=== PATIENT | male | born 1975 | race Caucasian/White ===

== ENCOUNTER 2017-02-20 19:16 | Emergency (ER) | payer MEDICAID ==
[~2017-02-20] VITALS: Ht 160 cm; Wt 69.0 kg
[2017-02-20 19:24] VITALS: Ht 160 cm; Wt 69.0 kg
[2017-02-20] MEDS ORDERED: IBUPROFEN 600 MG TAB PO ONE (22:00)
--- NOTE | 2017-02-20 22:36 | RADRPT ---
PROCEDURE: XR Chest. CLINICAL INDICATION: Cough. TECHNIQUE: PA erect view of the chest was obtained. COMPARISON: None. FINDINGS: The cardiomediastinal silhouette is within normal limits. The lungs are clear. There is no evidenc e for pleural effusion, pneumothorax or pulmonary vascular congestion. The osseous structures are i ntact with no evidence for acute abnormality. RPTAT:HJJR IMPRESSION: No evidence for acute intrathoracic pathology. Physician Clint Date Time Electronically viewed and signed by Physician Clint on 02/20/2017 22:35 JR/
[2017-02-20] MEDS ORDERED: BEN25 PO (22:57)
--- NOTE | 2017-02-21 00:40 | ERD ---
ER Documentation Chief Complaint Date/Time DATE: 02/21/17 TIME: 00:36 Chief Complaint upper abd pain x 1 day, headache HPI This patient is a 41-year-old male with no past medical history presenting to the emergency department with anxiety feelings which began yesterday. Symptoms have been intermittent. He did experience some shortness of breath last night. He has never had the symptoms in the past. He reports it being difficult to take a deep breath. Symptoms lasted for around 30 minutes then spontaneously resolved. Report increased stress in his life. He adamantly denies suicidal or homicidal ideation. He has no history of suicidal ideation in the past. He denies chest pain, palpitations, cough, or other symptoms currently. ROS All systems reviewed and are negative except as per history of present illness. Medications Home Meds Active Scripts Diphenhydramine Hcl* (Benadryl*) 25 Mg Cap, 25 MG PO Q6, #30 CAP Prov:YUDELKA WELLINGTON PA-C 02/20/17 Allergies Allergies: Coded Allergies: No Known Allergy (Unverified , 12/06/13) PMhx/Soc Medical and Surgical Hx: pt denies Medical Hx, pt denies Surgical Hx History of Surgery: Yes (hernia repainr 2006) Anesthesia Reaction: No Hx Neurological Disorder: No Hx Respiratory Disorders: No Hx Cardiac Disorders: No Hx Psychiatric Problems: No Hx Miscellaneous Medical Probl: No Hx Alcohol Use: No Hx Substance Use: No Hx Tobacco Use: No Smoking Status: Never smoker Physical Exam Vitals Vital Signs Date Time Temp Pulse Resp B/P Pulse Ox O2 Delivery O2 Flow Rate FiO2 02/20/17 19:24 97.8 69 20 121/68 98 Physical Exam Const: Nontoxic, well-appearing male in no acute distress. Head: Atraumatic Eyes: Normal Conjunctiva ENT: Normal External Ears, Nose and Mouth. Neck: Full range of motion..~ No meningismus. Resp: Clear to auscultation bilaterally Cardio: Regular rate and rhythm, no murmurs Skin: No petechiae or rashes Ext: No cyanosis, or edema Neur: Awake and alert Psych: Normal Mood and Affect Results 24 hrs Current Medications Medications (Trade) Dose Ordered Sig/Dennis Route PRN Reason Start Time Stop Time Status Last Admin Dose Admin Ibuprofen (Motrin) 600 mg ONCE ONCE PO 02/20/17 22:00 02/20/17 22:01 DC 02/20/17 22:05 Procedures/MDM 41-year-old male presenting to the emergency department complains of anxiety. Physical examination is benign. The patient denied any homicidal or suicidal ideation. X-ray was negative for acute findings. EKG was not concerning for acute coronary ischemia. The patient was stable for discharge after chest x- ray and EKG in the department. He felt comfortable going home. I do not believe he was a threat to himself or others. The patient was given a prescription for Benadryl which she may try for acute anxiety. The patient did not want benzodiazepine medication at this time. He is to have close follow-up with his primary care physician and he may return immediately for new or worsening symptoms. Low suspicion for life-threatening pathology at time of discharge. EKG: Interpreted by ED physician, Dr. Augusto Tang Rate/Rhythm: And his bradycardia with a rate of 53 bpm. QRS, ST, T-waves: No changes consistent w/ acute ischemia Impression: No evidence of ischemia or arrhythmia PROCEDURE: XR Chest. CLINICAL INDICATION: Cough. TECHNIQUE: PA erect view of the chest was obtained. COMPARISON: None. FINDINGS: The cardiomediastinal silhouette is within normal limits. The lungs are clear. There is no evidence for pleural effusion, pneumothorax or pulmonary vascular congestion. The osseous structures are intact with no evidence for acute abnormality. RPTAT:HJJR IMPRESSION: No evidence for acute intrathoracic pathology. Physician Clint Date Time Electronically viewed and signed by Physician Clint on 02/20/2017 22:35 Departure Diagnosis: Primary Impression: Anxiety reaction Condition: Fair Patient Instructions: Your Body's Response to Anxiety, Anxiety Reaction Referrals: [facility] YOU HAVE RECEIVED A MEDICAL SCREENING EXAM AND THE RESULTS INDICATE THAT YOU DO NOT HAVE A CONDITION THAT REQUIRES URGENT TREATMENT IN THE EMERGENCY DEPARTMENT. FURTHER EVALUATION AND TREATMENT OF YOUR CONDITION CAN WAIT UNTIL YOU ARE SEEN IN YOUR DOCTORS OFFICE WITHIN THE NEXT 1-2 DAYS. IT IS YOUR RESPONSIBILITY TO MAKE AN APPOINTMENT FOR FOLOW-UP CARE. IF YOU HAVE A PRIMARY DOCTOR --you should call your primary doctor and schedule an appointment IF YOU DO NOT HAVE A PRIMARY DOCTOR YOU CAN CALL OUR PHYSICIAN REFERRAL HOTLINE AT IF YOU CAN NOT AFFORD TO SEE A PHYSICIAN YOU CAN CHOSE FROM THE FOLLOWING [facility] [address] [facility] [address] [facility] [address] [facility] [address] [facility] [address] [facility]. [facility] [address] Additional Instructions: Follow up with your PCP within the next 1-3 days for a repeat evaluation. If you require a referral to a specialist, your Primary Care Provider may be able to provide this for you. In most patient cases, a referral is not required. If you have further questions regarding this matter, please ask your Primary Care Provider. Return the the emergency department immediately if symptoms worsen or change. If you have any questions regarding medications, ask your pharmacist or us before you leave. If any adverse reactions, occur while taking your medications, discontinue the treatment and return to the emergency department immediately. If any new or worsening symptoms, uncontrolled fevers, or other unexplained symptoms occur, return to the emergency department immediately. Take your medications as directed, and complete the entire course of treatment. YUDELKA WELLINGTON PA-C Feb 21, 2017 00:40
== END 2017-02-20 23:23 | disposition home or self-care (01) ==
LOC: FTE 19:16
DX: F41.9 Anxiety disorder, unspecified (principal); R06.02 Shortness of breath
CPT/HCPCS: 71010; 93005; Z7502; Z7610

== ENCOUNTER 2017-07-27 21:56 | Emergency (ER) | END 2017-07-27 23:34 | disposition home or self-care (01) ==